=== PATIENT | female | born 1935 | race Caucasian/White ===

== ENCOUNTER 2016-05-11 16:52 | Emergency (ER) | payer OTHER, MEDICAID ==
[~2016-05-11] VITALS: Ht 152.4 cm; Wt 33.1 kg
[~2016-05-11 16:52] MED LIST: ALBUAER3 IN; ALPR0.5T7 PO; CALC200S7; CYCL10TA3 OR; DIPH2.5T73 PO; FLUT250M2 IN; LEVO25TA6 PO; METO25TA3 PO; MONT5CHW17 PO; NOR5T GT; OMEP20CA5 PO; POT20T PO; TRIA50TA2 PO
[2016-05-11] MEDS ORDERED: MORPHINE SULF INJ 2 MG/ML SYRINGE 1ML IV ONE (19:30)
[2016-05-11] MEDS ORDERED: ONDANSETRON HCL 4 MG/2 ML VIAL IV ONE (19:30)
[2016-05-11 21:20] VITALS: BP 130/62
== END 2016-05-11 23:18 | disposition home or self-care (01) ==
LOC: EDBD 16:52 → ER 16:54
DX: S42.221A 2-part displaced fracture of surgical neck of right humerus, initial encounter for closed fracture (principal); S51.011A Laceration without foreign body of right elbow, initial encounter; G89.29 Other chronic pain; J44.9 Chronic obstructive pulmonary disease, unspecified; M19.90 Unspecified osteoarthritis, unspecified site; Z85.118 Personal history of other malignant neoplasm of bronchus and lung; F17.210 Nicotine dependence, cigarettes, uncomplicated; Z88.2 Allergy status to sulfonamides; Z88.1 Allergy status to other antibiotic agents; Z88.8 Allergy status to other drugs, medicaments and biological substances; Z79.899 Other long term (current) drug therapy; W19.XXXA Unspecified fall, initial encounter; Y93.89 Activity, other specified; Y99.8 Other external cause status; Y92.89 Other specified places as the place of occurrence of the external cause
CPT/HCPCS: 29105; 73030; 96374; 96375; 99284; J2270; J2405

== ENCOUNTER 2018-03-03 17:23 | Inpatient (IN) | payer OTHER, MEDICAID ==
[~2018-03-03] VITALS: Ht 157.5 cm; Wt 37.7 kg
[~2018-03-03 17:23] MED LIST changes: +ALBU0.5N2; +ALPR0.5T; +DIPH2.5T73; +FLUT0.0531; +FLUT250M2; +HYDR-4683 GT; +LEVO25TA45; -METO25TA3 PO; +METO25TA4; +METO25TA4 PO; +MONT5CHW17; +NOR10T; -NOR5T GT; -OMEP20CA5 PO; +OMEP20CA74 PO; +TRIA50TA2
[2018-03-03 18:20] LABS: Basophils # (auto) 0.1 uL; Basophils % (auto) 0.2 % (0.0-2.0); Eosinophils # (auto) 0 uL; Hematocrit 49.5 % (36.0-46.0); Hemoglobin 16.7 g/dL (12.2-16.2); Lymphocytes # (auto) 1.2 uL; Mean Corpuscular Hemoglobin 33.8 pg (28.0-32.0); Mean Corpuscular Hgb Conc. 33.7 g/dL (32.0-36.0); Mean Corpuscular Volume 100.3 fL (80.0-100.0); Monocytes # (auto) 1.2 uL; Monocytes % (auto) 4.9 % (0.0-12.0); Neutrophils # (auto) 22.1 uL; Neutrophils % (auto) 89.9 % (37.0-80.0); Platelet Count (auto) 305 10^3/uL (140-450); Red Blood Cells 4.93 10^6/uL (4.0-5.20); Red Cell Distribution Width 14.2 % (11.8-14.3); White Blood Cell 24.5 10^3/uL (4.4-10.8)
[2018-03-03] MEDS ORDERED: methylPREDNISolone SOD SUCC 125 MG/2 ML VL IV ONE (18:30)
[2018-03-03 18:32] LABS: Albumin 2.9 g/dL (3.4-5.0); Calcium 8.6 mg/dL (8.5-10.1); Potassium 3.4 mmol/L (3.5-5.1)
[2018-03-03 18:38] LABS: BUN/Creatinine Ratio 17.6; Bilirubin, Total 1.1 mg/dL (0.2-1.0); Total Protein 7.3 g/dL (6.4-8.2)
[2018-03-03 19:30] LABS: Lactic Acid w/Reflex 2.9 mmol/L (0.4-2.0)
[2018-03-03] MEDS ORDERED: LEVOFLOXACIN 500MG 100 ML IV ONE (19:30)
[2018-03-03 19:36] LABS: Urine Bacteria FEW /hpf (None Seen); Urine Blood Negative /uL (Negative); Urine Hyaline Cast FEW /lpf (0 - 2); Urine Mucus FEW (None Seen); Urine Specific Gravity 1.018 (1.001-1.035); Urine WBC 2 /hpf (0 - 5)
[2018-03-03] MEDS ORDERED: cefTRIAXone 1GM/50ML D5W 50 ML IV ONE (19:45)
[2018-03-03] MEDS ORDERED: ONDANSETRON HCL 4 MG/2 ML VIAL IV ONE (21:00)
[2018-03-03] MEDS ORDERED: MORPHINE SULFATE 4 MG/ML SYR/VIAL IV ONE (21:00)
[2018-03-03] MEDS ORDERED: ONDANSETRON HCL 4 MG/2 ML VIAL IV PRN (21:45)
[2018-03-03] MEDS ORDERED: ACETAMINOPHEN 500 MG TAB PO PRN (21:45)
[2018-03-03] MEDS ORDERED: IOHEXOL 350 MG/ML 100ML IJ ONE (21:48)
[2018-03-03] MEDS: AZITHROMYCIN 500MG/ 250ML 250 ML IV SCH (22:03)
[2018-03-03] MEDS: POTASSIUM CHL 20 Meq TABLET PO SCH (22:03)
[2018-03-03 22:30] VITALS: BP 120/80
[2018-03-03] MEDS ORDERED: ENOXAPARIN SOD 40 MG/0.4 ML SYRINGE SC ONE (22:30)
[2018-03-03 23:18] VITALS: BP 127/74
[2018-03-04] MEDS: IPRATROPIUM BROM 0.5 MG/2.5ML INH SOL NEB SCH ×4 (00:11→19:43)
[2018-03-04] MEDS: ALBUTEROL SULF 2.5 MG/0.5ML(0.5%) NEB SOLN NEB SCH ×4 (00:11→19:43)
[2018-03-04] MEDS ORDERED: HYDR-4072 PO (00:51)
[2018-03-04] MEDS ORDERED: HYDR-4683 PO (00:51)
[2018-03-04] MEDS: HYDROcodone-ACET 5/325MG TAB PO PRN ×4 (01:30→17:16)
[2018-03-04 01:41] VITALS: BP 120/80
[2018-03-04] MEDS ORDERED: PRE5T GT (02:48)
[2018-03-04] MEDS ORDERED: UMEC1AER IN (02:48)
[2018-03-04] MEDS ORDERED: ALPR0.254 PO (02:48)
[2018-03-04] MEDS ORDERED: MONT10TA34 OR (02:48)
[2018-03-04] MEDS ORDERED: LEVO75TA50 PO (02:48)
[2018-03-04 05:34] VITALS: BP 98/60
[2018-03-04 06:19] LABS: Basophils # (auto) 0 uL; Basophils % (auto) 0.1 % (0.0-2.0); Eosinophils # (auto) 0 uL; Eosinophils % (auto) 0.1 % (0.0-7.0); Hematocrit 41.9 % (36.0-46.0); Hemoglobin 13.9 g/dL (12.2-16.2); Lymphocytes % (auto) 4.7 % (10.0-50.0); Mean Corpuscular Hgb Conc. 33.2 g/dL (32.0-36.0); Mean Corpuscular Volume 99.6 fL (80.0-100.0); Monocytes # (auto) 0.3 uL; Monocytes % (auto) 1.3 % (0.0-12.0); Neutrophils # (auto) 19.1 uL; Neutrophils % (auto) 93.8 % (37.0-80.0); Platelet Count (auto) 261 10^3/uL (140-450); Red Blood Cells 4.21 10^6/uL (4.0-5.20); Red Cell Distribution Width 13.8 % (11.8-14.3); White Blood Cell 20.4 10^3/uL (4.4-10.8)
[2018-03-04 06:26] LABS: BUN/Creatinine Ratio 24.4; Calcium 8.1 mg/dL (8.5-10.1); Potassium 5.1 mmol/L (3.5-5.1)
[2018-03-04 08:42] VITALS: BP 95/50
[2018-03-04] MEDS ORDERED: DIPH2.5T73 PO (09:41)
[2018-03-04] MEDS ORDERED: LEV50T GT (09:41)
[2018-03-04] MEDS: cefTRIAXone 1GM/50ML D5W 50 ML IV SCH (09:44)
[2018-03-04] MEDS: ENOXAPARIN SOD 30 MG/0.3 ML SYRINGE SC SCH (09:45)
[2018-03-04] MEDS: POTASSIUM CHL 20 Meq TABLET PO SCH (09:45)
[2018-03-04] MEDS ORDERED: ENOXAPARIN SOD 100 MG/1 ML SYRINGE SC SCH (10:00)
[2018-03-04] MEDS: ANORO ELLIPTA PO SCH (10:00)
[2018-03-04 12:35] VITALS: BP 96/53
[2018-03-04 16:59] VITALS: BP 115/67
[2018-03-04] MEDS: ENSURE CLEAR Mixed Berry 8oz Carton PO SCH (18:00)
[2018-03-04] MEDS ORDERED: [UNRECOGNIZED DRUG - OTHER] PO PRN (20:45)
[2018-03-04] MEDS ORDERED: DIPHENOXYLATE W/ATROPINE 2.5 MG TAB PO PRN (20:45)
[2018-03-04] MEDS ORDERED: HYDROCODONE ACETAMINOPHEN PO PRN (20:45)
[2018-03-04 22:00] VITALS: BP 124/79
[2018-03-04] MEDS ORDERED: PATIENTS OWN MEDICATION (Omeprazole (Prilosec) 1 CAP) PO SCH (22:00)
[2018-03-04] MEDS: ALPRAZolam 0.5 MG TAB PO SCH (22:00)
[2018-03-04] MEDS: AZITHROMYCIN 500MG/ 250ML 250 ML IV SCH (22:00)
[2018-03-04] MEDS ORDERED: PATIENTS OWN MEDICATION (Alprazolam 1 TAB) PO SCH (22:00)
[2018-03-04] MEDS: HYDROcodone-ACET 10/325MG TAB PO PRN (22:15)
[2018-03-05] MEDS: ALBUTEROL SULF 2.5 MG/0.5ML(0.5%) NEB SOLN NEB SCH ×4 (01:25→19:05)
[2018-03-05] MEDS: IPRATROPIUM BROM 0.5 MG/2.5ML INH SOL NEB SCH ×4 (01:25→19:06)
[2018-03-05] MEDS: HYDROcodone-ACET 10/325MG TAB PO PRN ×3 (02:51→22:15)
[2018-03-05 05:48] VITALS: BP 111/69
[2018-03-05] MEDS: ALPRAZolam 0.5 MG TAB PO SCH ×3 (06:00→22:06)
[2018-03-05] MEDS: LEVOTHYROXINE SODIUM 50 MCG TAB GT SCH (06:38)
[2018-03-05] MEDS: ENSURE CLEAR Mixed Berry 8oz Carton PO SCH ×5 (06:38→22:05)
[2018-03-05 09:00] VITALS: BP 111/64
[2018-03-05] MEDS: cefTRIAXone 1GM/50ML D5W 50 ML IV SCH (09:41)
[2018-03-05] MEDS: MONTELUKAST SODIUM 10 MG TAB PO SCH (09:42)
[2018-03-05] MEDS: POTASSIUM CHL 20 Meq TABLET PO SCH (09:42)
[2018-03-05] MEDS: PANTOPRAZOLE 40 MG TAB PO SCH (09:42)
[2018-03-05] MEDS: METOPROLOL SUCCINATE XL 50 MG TAB PO SCH (09:44)
[2018-03-05] MEDS: ENOXAPARIN SOD 30 MG/0.3 ML SYRINGE SC SCH (09:45)
[2018-03-05] MEDS: ANORO ELLIPTA PO SCH (09:48)
[2018-03-05] MEDS ORDERED: UMECLIDINIUM VILANTEROL IN SCH (10:00)
[2018-03-05] MEDS ORDERED: METOPROLOL SUCCINATE PO SCH (10:00)
[2018-03-05] MEDS ORDERED: predniSONE 5 MG TAB GT SCH (10:00)
[2018-03-05 13:00] VITALS: BP 110/61
[2018-03-05 17:22] VITALS: BP 116/69
[2018-03-05 22:00] VITALS: BP 126/70
[2018-03-05] MEDS ORDERED: ENOXAPARIN SOD 40 MG/0.4 ML SYRINGE SC SCH (22:00)
[2018-03-05] MEDS: AZITHROMYCIN 500MG/ 250ML 250 ML IV SCH (22:05)
[2018-03-05] MEDS: ENOXAPARIN SOD 40 MG/0.4 ML SYRINGE SC SCH (22:06)
[2018-03-06] MEDS: IPRATROPIUM BROM 0.5 MG/2.5ML INH SOL NEB SCH ×4 (01:01→19:06)
[2018-03-06] MEDS: ALBUTEROL SULF 2.5 MG/0.5ML(0.5%) NEB SOLN NEB SCH ×4 (01:01→19:06)
[2018-03-06 04:58] VITALS: BP 122/78
[2018-03-06 05:54] LABS: Basophils # (auto) 0 uL; Eosinophils # (auto) 0 uL; Eosinophils % (auto) 0.1 % (0.0-7.0); Hemoglobin 12.9 g/dL (12.2-16.2); Lymphocytes # (auto) 1.6 uL; Lymphocytes % (auto) 13.4 % (10.0-50.0); Mean Corpuscular Hemoglobin 32.4 pg (28.0-32.0); Mean Corpuscular Hgb Conc. 32.3 g/dL (32.0-36.0); Mean Corpuscular Volume 100.5 fL (80.0-100.0); Monocytes # (auto) 0.6 uL; Monocytes % (auto) 4.6 % (0.0-12.0); Neutrophils # (auto) 9.9 uL; Neutrophils % (auto) 81.9 % (37.0-80.0); Nucleated Red Blood Cells % 0.1 %; Platelet Count (auto) 263 10^3/uL (140-450); Red Blood Cells 3.98 10^6/uL (4.0-5.20); Red Cell Distribution Width 13.8 % (11.8-14.3)
[2018-03-06] MEDS: LEVOTHYROXINE SODIUM 50 MCG TAB GT SCH (06:09)
[2018-03-06] MEDS: ALPRAZolam 0.5 MG TAB PO SCH ×3 (06:09→21:59)
[2018-03-06] MEDS: ENSURE CLEAR Mixed Berry 8oz Carton PO SCH ×4 (06:09→22:00)
[2018-03-06 09:00] VITALS: BP 125/73
[2018-03-06] MEDS: ANORO ELLIPTA PO SCH (09:08)
[2018-03-06] MEDS: cefTRIAXone 1GM/50ML D5W 50 ML IV SCH (09:08)
[2018-03-06] MEDS: METOPROLOL SUCCINATE XL 50 MG TAB PO SCH (09:09)
[2018-03-06] MEDS: PANTOPRAZOLE 40 MG TAB PO SCH (09:09)
[2018-03-06] MEDS: POTASSIUM CHL 20 Meq TABLET PO SCH (09:09)
[2018-03-06] MEDS: MONTELUKAST SODIUM 10 MG TAB PO SCH (09:09)
[2018-03-06] MEDS: ENOXAPARIN SOD 40 MG/0.4 ML SYRINGE SC SCH ×2 (09:10→21:59)
[2018-03-06] MEDS: HYDROcodone-ACET 10/325MG TAB PO PRN (12:05)
[2018-03-06 13:00] VITALS: BP 127/78
[2018-03-06] MEDS: SODIUM CHLORIDE 0.9% 1,000 ML IV SCH ×2 (14:31→19:45)
[2018-03-06 17:00] VITALS: BP 137/84
[2018-03-06 21:48] VITALS: BP 137/84
[2018-03-06] MEDS: AZITHROMYCIN 500MG/ 250ML 250 ML IV SCH (21:59)
[2018-03-06 22:00] VITALS: BP 118/57
[2018-03-07] VITALS (7 sets, daily range): BP systolic 125–145; BP diastolic 58–89
[2018-03-07] MEDS: IPRATROPIUM BROM 0.5 MG/2.5ML INH SOL NEB SCH ×3 (00:53→19:03)
[2018-03-07] MEDS: ALBUTEROL SULF 2.5 MG/0.5ML(0.5%) NEB SOLN NEB SCH ×3 (00:53→19:03)
[2018-03-07] MEDS: SODIUM CHLORIDE 0.9% 1,000 ML IV SCH ×4 (03:45→21:30)
[2018-03-07 05:45] LABS: Basophils # (auto) 0 uL; Basophils % (auto) 0.4 % (0.0-2.0); Eosinophils # (auto) 0 uL; Eosinophils % (auto) 0.6 % (0.0-7.0); Hematocrit 43.3 % (36.0-46.0); Hemoglobin 14.4 g/dL (12.2-16.2); Lymphocytes # (auto) 1.2 uL; Lymphocytes % (auto) 16.4 % (10.0-50.0); Mean Corpuscular Hemoglobin 33.4 pg (28.0-32.0); Mean Corpuscular Hgb Conc. 33.2 g/dL (32.0-36.0); Mean Corpuscular Volume 100.8 fL (80.0-100.0); Monocytes # (auto) 0.6 uL; Monocytes % (auto) 8.3 % (0.0-12.0); Neutrophils # (auto) 5.6 uL; Neutrophils % (auto) 74.3 % (37.0-80.0); Nucleated Red Blood Cells % 0.1 %; Platelet Count (auto) 255 10^3/uL (140-450); Red Blood Cells 4.29 10^6/uL (4.0-5.20); Red Cell Distribution Width 14.1 % (11.8-14.3); White Blood Cell 7.6 10^3/uL (4.4-10.8)
[2018-03-07] MEDS: ALPRAZolam 0.5 MG TAB PO SCH ×3 (05:48→22:04)
[2018-03-07] MEDS: ENSURE CLEAR Mixed Berry 8oz Carton PO SCH ×4 (06:00→22:04)
[2018-03-07] MEDS: LEVOTHYROXINE SODIUM 50 MCG TAB GT SCH (06:41)
[2018-03-07] MEDS: HYDROcodone-ACET 10/325MG TAB PO PRN ×2 (08:50→17:27)
[2018-03-07] MEDS: cefTRIAXone 1GM/50ML D5W 50 ML IV SCH (08:50)
[2018-03-07] MEDS: ANORO ELLIPTA PO SCH (10:00)
[2018-03-07] MEDS: METOPROLOL SUCCINATE XL 50 MG TAB PO SCH (11:03)
[2018-03-07] MEDS: POTASSIUM CHL 20 Meq TABLET PO SCH (11:03)
[2018-03-07] MEDS: MONTELUKAST SODIUM 10 MG TAB PO SCH (11:04)
[2018-03-07] MEDS: PANTOPRAZOLE 40 MG TAB PO SCH (11:04)
[2018-03-07] MEDS: ENOXAPARIN SOD 40 MG/0.4 ML SYRINGE SC SCH (11:05)
[2018-03-07] MEDS ORDERED: APIXABAN 2.5 MG TAB PO SCH (11:34)
[2018-03-07] MEDS: APIXABAN 2.5 MG TAB PO SCH (22:03)
[2018-03-07] MEDS: AZITHROMYCIN 500MG/ 250ML 250 ML IV SCH (22:04)
[2018-03-08] MEDS: ALBUTEROL SULF 2.5 MG/0.5ML(0.5%) NEB SOLN NEB SCH ×4 (00:06→19:14)
[2018-03-08] MEDS: IPRATROPIUM BROM 0.5 MG/2.5ML INH SOL NEB SCH ×4 (00:06→19:14)
[2018-03-08 05:00] VITALS: BP 128/68
[2018-03-08 05:30] LABS: Basophils # (auto) 0 uL; Eosinophils # (auto) 0.1 uL; Eosinophils % (auto) 1.3 % (0.0-7.0); Hemoglobin 13.9 g/dL (12.2-16.2)
[2018-03-08] MEDS: ENSURE CLEAR Mixed Berry 8oz Carton PO SCH ×4 (05:30→22:11)
[2018-03-08] MEDS: ALPRAZolam 0.5 MG TAB PO SCH ×3 (05:30→22:11)
[2018-03-08 05:31] LABS: Basophils % (auto) 0.2 % (0.0-2.0); Hematocrit 41.8 % (36.0-46.0); Lymphocytes # (auto) 1.9 uL; Lymphocytes % (auto) 23.2 % (10.0-50.0); Mean Corpuscular Hemoglobin 34.2 pg (28.0-32.0); Mean Corpuscular Hgb Conc. 33.3 g/dL (32.0-36.0); Mean Corpuscular Volume 102.8 fL (80.0-100.0); Monocytes % (auto) 11.8 % (0.0-12.0); Neutrophils # (auto) 5.2 uL; Neutrophils % (auto) 63.5 % (37.0-80.0); Nucleated Red Blood Cells % 0.1 %; Platelet Count (auto) 237 10^3/uL (140-450); Red Blood Cells 4.06 10^6/uL (4.0-5.20); Red Cell Distribution Width 13.9 % (11.8-14.3); White Blood Cell 8.3 10^3/uL (4.4-10.8)
[2018-03-08] MEDS: LEVOTHYROXINE SODIUM 50 MCG TAB GT SCH (06:37)
[2018-03-08 08:00] VITALS: BP 132/88
[2018-03-08 09:00] VITALS: BP 152/88
[2018-03-08] MEDS: cefTRIAXone 1GM/50ML D5W 50 ML IV SCH (09:12)
[2018-03-08] MEDS: HYDROcodone-ACET 10/325MG TAB PO PRN ×2 (09:13→17:42)
[2018-03-08] MEDS: ANORO ELLIPTA PO SCH (10:00)
[2018-03-08] MEDS: APIXABAN 2.5 MG TAB PO SCH ×2 (11:27→22:10)
[2018-03-08] MEDS: PANTOPRAZOLE 40 MG TAB PO SCH (11:27)
[2018-03-08] MEDS: MONTELUKAST SODIUM 10 MG TAB PO SCH (11:27)
[2018-03-08] MEDS: POTASSIUM CHL 20 Meq TABLET PO SCH (11:28)
[2018-03-08] MEDS: METOPROLOL SUCCINATE XL 50 MG TAB PO SCH (11:28)
[2018-03-08] MEDS: SODIUM CHLORIDE 0.9% 1,000 ML IV SCH ×2 (11:29→19:45)
[2018-03-08 13:00] VITALS: BP 121/72
[2018-03-08] MEDS ORDERED: LEVOFLOXACIN 500 MG TAB PO ONE (14:00)
[2018-03-08 17:00] VITALS: BP 127/75
[2018-03-08 21:28] VITALS: BP 131/74
[2018-03-09] MEDS: ALBUTEROL SULF 2.5 MG/0.5ML(0.5%) NEB SOLN NEB SCH ×4 (00:46→19:09)
[2018-03-09] MEDS: IPRATROPIUM BROM 0.5 MG/2.5ML INH SOL NEB SCH ×4 (00:46→19:09)
[2018-03-09] MEDS: SODIUM CHLORIDE 0.9% 1,000 ML IV SCH ×3 (01:25→22:31)
[2018-03-09] MEDS: ENSURE CLEAR Mixed Berry 8oz Carton PO SCH ×4 (05:31→22:29)
[2018-03-09] MEDS: ALPRAZolam 0.5 MG TAB PO SCH ×3 (05:31→22:29)
[2018-03-09 05:39] VITALS: BP 129/68
[2018-03-09] MEDS: LEVOTHYROXINE SODIUM 50 MCG TAB GT SCH (06:31)
[2018-03-09 06:51] LABS: BUN/Creatinine Ratio 5.4; Calcium 7.2 mg/dL (8.5-10.1); Potassium 4.1 mmol/L (3.5-5.1)
[2018-03-09 06:54] LABS: Bilirubin, Total 0.5 mg/dL (0.2-1.0); Total Protein 5.6 g/dL (6.4-8.2)
[2018-03-09 08:54] VITALS: BP 158/99
[2018-03-09] MEDS: ANORO ELLIPTA PO SCH (10:00)
[2018-03-09] MEDS ORDERED: LEVOFLOXACIN 250 MG TAB PO SCH (10:00)
[2018-03-09] MEDS: POTASSIUM CHL 20 Meq TABLET PO SCH (10:05)
[2018-03-09] MEDS: MONTELUKAST SODIUM 10 MG TAB PO SCH (10:05)
[2018-03-09] MEDS: APIXABAN 2.5 MG TAB PO SCH ×2 (10:05→22:29)
[2018-03-09] MEDS: AZITHROMYCIN 250 MG TAB PO SCH (10:06)
[2018-03-09] MEDS: METOPROLOL SUCCINATE XL 50 MG TAB PO SCH (10:07)
[2018-03-09] MEDS: PANTOPRAZOLE 40 MG TAB PO SCH (10:07)
[2018-03-09 12:23] VITALS: BP 113/75
[2018-03-09 16:46] VITALS: BP 110/66
[2018-03-09 20:20] VITALS: BP 137/84
[2018-03-09 22:00] VITALS: BP 123/80
[2018-03-09] MEDS: HYDROcodone-ACET 10/325MG TAB PO PRN (22:30)
[2018-03-10] MEDS: IPRATROPIUM BROM 0.5 MG/2.5ML INH SOL NEB SCH ×5 (00:46→23:04)
[2018-03-10] MEDS: ALBUTEROL SULF 2.5 MG/0.5ML(0.5%) NEB SOLN NEB SCH ×5 (00:46→23:04)
[2018-03-10] MEDS: SODIUM CHLORIDE 0.9% 1,000 ML IV SCH ×3 (03:45→22:34)
[2018-03-10 05:00] VITALS: BP 115/61
[2018-03-10] MEDS: ALPRAZolam 0.5 MG TAB PO SCH ×3 (06:00→21:48)
[2018-03-10] MEDS: ENSURE CLEAR Mixed Berry 8oz Carton PO SCH ×4 (06:04→22:00)
[2018-03-10] MEDS: LEVOTHYROXINE SODIUM 50 MCG TAB GT SCH (06:46)
[2018-03-10 08:00] VITALS: BP 132/64
[2018-03-10 08:58] VITALS: BP 132/64
[2018-03-10] MEDS: ANORO ELLIPTA PO SCH (09:19)
[2018-03-10] MEDS: MONTELUKAST SODIUM 10 MG TAB PO SCH (09:21)
[2018-03-10] MEDS: POTASSIUM CHL 20 Meq TABLET PO SCH (09:21)
[2018-03-10] MEDS: APIXABAN 2.5 MG TAB PO SCH ×2 (09:21→21:48)
[2018-03-10] MEDS: AZITHROMYCIN 250 MG TAB PO SCH (09:21)
[2018-03-10] MEDS: PANTOPRAZOLE 40 MG TAB PO SCH (09:21)
[2018-03-10] MEDS: METOPROLOL SUCCINATE XL 50 MG TAB PO SCH (09:22)
[2018-03-10 14:17] VITALS: BP 144/68
[2018-03-10] MEDS ORDERED: ALBUAER3 IN (16:10)
[2018-03-10] MEDS ORDERED: ALPR0.254 PO (16:11)
[2018-03-10] MEDS ORDERED: DIPH2.5T73 PO (16:13)
[2018-03-10] MEDS ORDERED: LEVO50TA7 PO (16:24)
[2018-03-10] MEDS ORDERED: METO25TA62 PO (16:25)
[2018-03-10] MEDS ORDERED: MONT10TA34 PO (16:26)
[2018-03-10] MEDS ORDERED: OMEP20TA PO (16:27)
[2018-03-10 17:34] VITALS: BP 152/79
[2018-03-10 21:46] VITALS: BP 138/76
[2018-03-10] MEDS: HYDROcodone-ACET 10/325MG TAB PO PRN (21:49)
[2018-03-11] MEDS: SODIUM CHLORIDE 0.9% 1,000 ML IV SCH ×3 (03:45→20:17)
[2018-03-11 04:50] VITALS: BP 96/52
[2018-03-11] MEDS: ENSURE CLEAR Mixed Berry 8oz Carton PO SCH ×4 (06:00→21:54)
[2018-03-11] MEDS: ALPRAZolam 0.5 MG TAB PO SCH ×3 (06:00→21:52)
[2018-03-11] MEDS: ALBUTEROL SULF 2.5 MG/0.5ML(0.5%) NEB SOLN NEB SCH ×3 (06:35→18:44)
[2018-03-11] MEDS: IPRATROPIUM BROM 0.5 MG/2.5ML INH SOL NEB SCH ×3 (06:36→18:44)
[2018-03-11] MEDS: LEVOTHYROXINE SODIUM 50 MCG TAB GT SCH (06:48)
[2018-03-11 08:00] VITALS: BP 111/63
[2018-03-11 09:00] VITALS: BP 111/63
[2018-03-11] MEDS: ANORO ELLIPTA PO SCH (09:31)
[2018-03-11] MEDS: APIXABAN 2.5 MG TAB PO SCH ×2 (09:31→21:52)
[2018-03-11] MEDS: POTASSIUM CHL 20 Meq TABLET PO SCH (09:32)
[2018-03-11] MEDS: PANTOPRAZOLE 40 MG TAB PO SCH (09:32)
[2018-03-11] MEDS: AZITHROMYCIN 250 MG TAB PO SCH (09:32)
[2018-03-11] MEDS: MONTELUKAST SODIUM 10 MG TAB PO SCH (09:32)
[2018-03-11] MEDS: METOPROLOL SUCCINATE XL 50 MG TAB PO SCH (09:33)
[2018-03-11 13:00] VITALS: BP 117/77
[2018-03-11 17:00] VITALS: BP 122/74
[2018-03-11] MEDS: HYDROcodone-ACET 10/325MG TAB PO PRN (21:52)
[2018-03-11 22:00] VITALS: BP 117/63
[2018-03-12] MEDS: ALBUTEROL SULF 2.5 MG/0.5ML(0.5%) NEB SOLN NEB SCH ×3 (00:14→11:55)
[2018-03-12] MEDS: IPRATROPIUM BROM 0.5 MG/2.5ML INH SOL NEB SCH ×3 (00:14→11:55)
[2018-03-12 05:00] VITALS: BP 122/56
[2018-03-12] MEDS: ALPRAZolam 0.5 MG TAB PO SCH ×2 (06:00→14:00)
[2018-03-12] MEDS: SODIUM CHLORIDE 0.9% 1,000 ML IV SCH ×2 (06:23→11:46)
[2018-03-12] MEDS: ENSURE CLEAR Mixed Berry 8oz Carton PO SCH ×3 (06:23→17:49)
[2018-03-12] MEDS: LEVOTHYROXINE SODIUM 50 MCG TAB GT SCH (06:23)
[2018-03-12 08:00] VITALS: BP 122/69
[2018-03-12 09:00] VITALS: BP 122/69
[2018-03-12] MEDS: ANORO ELLIPTA PO SCH (10:00)
[2018-03-12] MEDS: PANTOPRAZOLE 40 MG TAB PO SCH (10:03)
[2018-03-12] MEDS: POTASSIUM CHL 20 Meq TABLET PO SCH (10:03)
[2018-03-12] MEDS: APIXABAN 2.5 MG TAB PO SCH (10:03)
[2018-03-12] MEDS: AZITHROMYCIN 250 MG TAB PO SCH (10:04)
[2018-03-12] MEDS: MONTELUKAST SODIUM 10 MG TAB PO SCH (10:04)
[2018-03-12] MEDS: METOPROLOL SUCCINATE XL 50 MG TAB PO SCH (10:04)
[2018-03-12] MEDS: HYDROcodone-ACET 10/325MG TAB PO PRN (10:05)
[2018-03-12 13:00] VITALS: BP 124/74
[2018-03-12 17:00] VITALS: BP 122/61
[2018-03-12 18:07] VITALS: BP 122/61
== END 2018-03-12 18:07 | disposition home or self-care (01) | DRG 871 ==
LOC: ER 17:30 → OVERFLOW 21:42 → WEST WING 22:24
PROVIDERS: ADMIT Nurse Practitioner Family; ATTEND Internal Medicine Pulmonary Disease
DX: A41.9 Sepsis, unspecified organism (principal); J18.1 Lobar pneumonia, unspecified organism; I26.99 Other pulmonary embolism without acute cor pulmonale; J96.20 Acute and chronic respiratory failure, unspecified whether with hypoxia or hypercapnia; E44.0 Moderate protein-calorie malnutrition; J44.0 Chronic obstructive pulmonary disease with (acute) lower respiratory infection; J44.1 Chronic obstructive pulmonary disease with (acute) exacerbation; M48.56XA Collapsed vertebra, not elsewhere classified, lumbar region, initial encounter for fracture; Z68.1 Body mass index [BMI] 19.9 or less, adult; E03.9 Hypothyroidism, unspecified; E87.6 Hypokalemia; F17.210 Nicotine dependence, cigarettes, uncomplicated; I10 Essential (primary) hypertension; F41.9 Anxiety disorder, unspecified; I70.0 Atherosclerosis of aorta; M19.90 Unspecified osteoarthritis, unspecified site; R73.9 Hyperglycemia, unspecified; K25.9 Gastric ulcer, unspecified as acute or chronic, without hemorrhage or perforation; M81.0 Age-related osteoporosis without current pathological fracture; Z82.49 Family history of ischemic heart disease and other diseases of the circulatory system; Z85.118 Personal history of other malignant neoplasm of bronchus and lung; Z90.2 Acquired absence of lung [part of]; Z79.51 Long term (current) use of inhaled steroids; Z88.1 Allergy status to other antibiotic agents; Z88.2 Allergy status to sulfonamides
CPT/HCPCS: 36415; 71045; 71046; 71260; 76705; 80048; 80053; 81001; 83605; 83880; 84484; 85025; 87040; 87804; 93005; 94640; 94761; 96365; 96372; 96375; 97116; 97530; G0378; J0696; J2405

== ENCOUNTER → 2018-06-18 | Outpatient (CLI) | payer OTHER, MEDICAID ==
[~2018-06-18] MED LIST changes: +ALPR0.254 PO; -ALPR0.5T7 PO; -CALC200S7; -CYCL10TA3 OR; -FLUT250M2 IN; -HYDR-4683 GT; -LEVO25TA6 PO; +LEVO50TA7 PO; -METO25TA4 PO; +METO25TA62 PO; +MONT10TA34 PO; -MONT5CHW17 PO; -OMEP20CA74 PO; +OMEP20TA PO; -POT20T PO; -TRIA50TA2 PO
[2018-06-18 10:41] LABS: Basophils # (auto) 0.1 uL; Basophils % (auto) 0.9 % (0.0-2.0); Eosinophils # (auto) 0 uL; Eosinophils % (auto) 0.8 % (0.0-7.0); Hematocrit 41.2 % (36.0-46.0); Hemoglobin 13.3 g/dL (12.2-16.2); Lymphocytes % (auto) 31.4 % (10.0-50.0); Mean Corpuscular Hemoglobin 32.3 pg (28.0-32.0); Mean Corpuscular Hgb Conc. 32.3 g/dL (32.0-36.0); Mean Corpuscular Volume 100.1 fL (80.0-100.0); Monocytes # (auto) 0.5 uL; Monocytes % (auto) 8.7 % (0.0-12.0); Neutrophils # (auto) 3.7 uL; Neutrophils % (auto) 58.2 % (37.0-80.0); Nucleated Red Blood Cells % 0.1 %; Platelet Count (auto) 277 10^3/uL (140-450); Red Blood Cells 4.12 10^6/uL (4.0-5.20); Red Cell Distribution Width 13.4 % (11.8-14.3); White Blood Cell 6.3 10^3/uL (4.4-10.8)
[2018-06-18 10:45] LABS: Potassium 4.1 mmol/L (3.5-5.1)
[2018-06-18 11:13] LABS: Albumin 2.9 g/dL (3.4-5.0); BUN/Creatinine Ratio 17.3; Bilirubin, Total 0.6 mg/dL (0.2-1.0); Calcium 8.6 mg/dL (8.5-10.1)
== END | disposition home or self-care (01) ==
LOC: LAB 09:51
PROVIDERS: ATTEND Physician Assistant
DX: M81.0 Age-related osteoporosis without current pathological fracture (principal); K58.9 Irritable bowel syndrome, unspecified; E03.9 Hypothyroidism, unspecified; J44.9 Chronic obstructive pulmonary disease, unspecified; R64 Cachexia
CPT/HCPCS: 36415; 80053; 80061; 84443; 85025

== ENCOUNTER → 2019-06-11 | Outpatient (CLI) | payer OTHER, MEDICAID ==
[~2019-06-11] MED LIST changes: +METO25TA36; -METO25TA4; -METO25TA62 PO; +METO25TA93 PO
[2019-06-11 12:14] LABS: Basophils # (auto) 0 uL; Basophils % (auto) 0.7 % (0.0-2.0); Eosinophils # (auto) 0.1 uL; Lymphocytes # (auto) 1.7 uL; Mean Corpuscular Volume 101.7 fL (80.0-100.0); Monocytes # (auto) 0.4 uL; Red Blood Cells 4.18 10^6/uL (4.0-5.20); White Blood Cell 5.4 10^3/uL (4.4-10.8)
[2019-06-11 12:16] LABS: Eosinophils % (auto) 1.7 % (0.0-7.0); Hematocrit 42.6 % (36.0-46.0); Hemoglobin 14.2 g/dL (12.2-16.2); Lymphocytes % (auto) 31.2 % (10.0-50.0); Mean Corpuscular Hgb Conc. 33.4 g/dL (32.0-36.0); Neutrophils # (auto) 3.2 uL; Neutrophils % (auto) 59.4 % (37.0-80.0); Nucleated Red Blood Cells % 0.1 %; Platelet Count (auto) 201 10^3/uL (140-450); Red Cell Distribution Width 13.3 % (11.8-14.3)
[2019-06-11 12:29] LABS: Albumin 3.6 g/dL (3.4-5.0); CRP High Sensitivity 0.09 mg/dL (< 0.3); Calcium 8.8 mg/dL (8.5-10.1); Potassium 3.8 mmol/L (3.5-5.1)
[2019-06-11 12:32] LABS: BUN/Creatinine Ratio 15.4; Bilirubin, Total 0.5 mg/dL (0.2-1.0); Total Protein 7.3 g/dL (6.4-8.2)
== END | disposition home or self-care (01) ==
LOC: LAB 11:46
PROVIDERS: ATTEND Internal Medicine Rheumatology
DX: M80.00XA Age-related osteoporosis with current pathological fracture, unspecified site, initial encounter for fracture (principal)
CPT/HCPCS: 36415; 80053; 82306; 84443; 85025; 85652; 86141

== ENCOUNTER → 2019-09-12 | Emergency (ER) | payer OTHER, MEDICAID ==
[~2019-09-12] VITALS: Ht 152.4 cm; Wt 33.1 kg
[~2019-09-12] MED LIST changes: +ACETAMINOPHEN 325 MG TAB PO ONE; +MILK OF MAGNESIA 30ML SUSP PO ONE; +ONDANSETRON HCL 4 MG/2 ML VIAL IV ONE; +POTASSIUM EFFERVESENT TAB 25 MEQ PO ONE; +SODIUM CHLORIDE 0.9% 1,000 ML IVB ONE
[2019-09-12 16:21] LABS: Basophils # (auto) 0 10 ^3/uL (0-0.2); Basophils % (auto) 0.4 % (0.0-2.0); Eosinophils # (auto) 0.1 10 ^3/uL (0-0.8); Eosinophils % (auto) 1.1 % (0.0-7.0); Hematocrit 43.1 % (36.0-46.0); Hemoglobin 14.6 g/dL (12.2-16.2); Lymphocytes # (auto) 0.6 10 ^3/uL (0.4-5.4); Lymphocytes % (auto) 5.7 % (10.0-50.0); Mean Corpuscular Hemoglobin 33.8 pg (28.0-32.0); Mean Corpuscular Hgb Conc. 33.8 g/dL (32.0-36.0); Monocytes # (auto) 0.8 10 ^3/uL (0-1.3); Monocytes % (auto) 7.7 % (0.0-12.0); Neutrophils % (auto) 85.1 % (37.0-80.0); Platelet Count (auto) 168 10^3/uL (140-450); Red Cell Distribution Width 13.3 % (11.8-14.3); White Blood Cell 10.6 10^3/uL (4.4-10.8)
[2019-09-12 16:31] LABS: Albumin 3.4 g/dL (3.4-5.0); Calcium 8.5 mg/dL (8.5-10.1); Magnesium 1.9 mg/dL (1.6-2.6); Potassium 3.4 mmol/L (3.5-5.1)
[2019-09-12 16:34] LABS: Total Protein 7.6 g/dL (6.4-8.2)
[2019-09-12 16:36] LABS: INR 1.04 (0.9-1.15); Partial Thromboplastin Time 29.7 sec (23.64-32.05)
[2019-09-12 16:46] LABS: Urine Bacteria NONE SEEN /hpf (None Seen); Urine Blood Negative /uL (Negative); Urine Specific Gravity 1.016 (1.001-1.035); Urine WBC 6 /hpf (0 - 5)
[2019-09-12 19:32] VITALS: BP 152/77
== END | disposition home or self-care (01) ==
LOC: ER 14:26
DX: K59.00 Constipation, unspecified (principal); R30.0 Dysuria; J44.9 Chronic obstructive pulmonary disease, unspecified; F41.9 Anxiety disorder, unspecified; F17.210 Nicotine dependence, cigarettes, uncomplicated; Z79.899 Other long term (current) drug therapy; Z88.1 Allergy status to other antibiotic agents; Z88.2 Allergy status to sulfonamides
CPT/HCPCS: 36415; 71045; 74176; 80053; 81001; 83735; 85025; 85610; 85730; 87086

== ENCOUNTER 2020-01-20 15:07 | Inpatient (IN) | payer OTHER, MEDICAID ==
[~2020-01-20] VITALS: Ht 152.4 cm; Wt 35.1 kg
[~2020-01-20 15:07] MED LIST changes: -ACETAMINOPHEN 325 MG TAB PO ONE; -MILK OF MAGNESIA 30ML SUSP PO ONE; -ONDANSETRON HCL 4 MG/2 ML VIAL IV ONE; -POTASSIUM EFFERVESENT TAB 25 MEQ PO ONE; -SODIUM CHLORIDE 0.9% 1,000 ML IVB ONE
[2020-01-20] MEDS ORDERED: PANTOPRAZOLE 40 MG/10 ML VIAL INJ IV STA (15:38)
[2020-01-20] MEDS ORDERED: MORPHINE SULFATE 4 MG/ML SYR/VIAL IV ONE (15:45)
[2020-01-20] MEDS ORDERED: ONDANSETRON HCL 4 MG/2 ML VIAL IV ONE (15:45)
[2020-01-20 16:02] LABS: Eosinophils # (auto) 0.2 10 ^3/uL (0-0.8); Eosinophils % (auto) 2.1 % (0.0-7.0); Hematocrit 46.2 % (36.0-46.0); Nucleated Red Blood Cells % 0.1 %
[2020-01-20 16:04] LABS: Basophils # (auto) 0 10 ^3/uL (0-0.2); Basophils % (auto) 0.4 % (0.0-2.0); Hemoglobin 15.3 g/dL (12.2-16.2); Lymphocytes # (auto) 2.6 10 ^3/uL (0.4-5.4); Lymphocytes % (auto) 30.9 % (10.0-50.0); Mean Corpuscular Hemoglobin 33.6 pg (28.0-32.0); Mean Corpuscular Volume 101.7 fL (80.0-100.0); Monocytes # (auto) 0.7 10 ^3/uL (0-1.3); Monocytes % (auto) 7.8 % (0.0-12.0); Neutrophils # (auto) 4.9 10 ^3/uL (1.6-8.6); Neutrophils % (auto) 58.8 % (37.0-80.0); Platelet Count (auto) 240 10^3/uL (140-450); Red Blood Cells 4.54 10^6/uL (4.0-5.20); Red Cell Distribution Width 13.3 % (11.8-14.3); White Blood Cell 8.3 10^3/uL (4.4-10.8)
[2020-01-20 16:22] LABS: Alanine Aminotransferase 16 U/L (13-56); Albumin 3.8 g/dL (3.4-5.0); Anion Gap 4 (5-15); Blood Urea Nitrogen 10 mg/dL (7-18); Calcium 7.8 mg/dL (8.5-10.1); Carbon Dioxide 30 mmol/L (21-32); Chloride 104 mmol/L (98-107); Glucose 106 mg/dL (74-106); Lipase 93 U/L (73-393); Potassium 3.8 mmol/L (3.5-5.1); Sodium 138 mmol/L (136-145)
[2020-01-20 16:27] LABS: Alkaline Phosphatase 74 U/L (45-117); Aspartate Aminotransferase 26 U/L (15-37); BUN/Creatinine Ratio 14.5; Bilirubin, Total 0.5 mg/dL (0.2-1.0); GFR African American 104 mL/min; GFR Non-African American 86 mL/min; Total Protein 7.7 g/dL (6.4-8.2)
[2020-01-20 20:12] LABS: Urine Bacteria NONE SEEN /hpf (None Seen); Urine Blood Negative /uL (Negative); Urine WBC 3 /hpf (0 - 5)
[2020-01-20] MEDS ORDERED: MORPHINE SULF INJ 2 MG/ML SYRINGE 1ML IV PRN ×2 (21:30→22:15)
[2020-01-20] MEDS ORDERED: ONDANSETRON HCL 4 MG/2 ML VIAL IV PRN ×2 (21:30→22:15)
[2020-01-20] MEDS ORDERED: HYDROcodone-ACET 5/325MG TAB PO PRN (22:15)
[2020-01-20] MEDS ORDERED: ACETAMINOPHEN 325 MG TAB PO PRN (22:15)
[2020-01-20] MEDS ORDERED: NITROGLYCERIN 0.4 MG SL TAB SL PRN (22:15)
[2020-01-20] MEDS ORDERED: DIPHENOXYLATE W/ATROPINE 2.5 MG TAB PO PRN (22:30)
[2020-01-20] MEDS ORDERED: ALBUTEROL SULF HFA 90MCG INH 200DOSE IN PRN (22:30)
[2020-01-20] MEDS ORDERED: ALBUTEROL SULF 2.5 MG/0.5ML(0.5%) NEB SOLN NEB PRN (23:00)
[2020-01-20 23:48] VITALS: BP 145/75
[2020-01-21] VITALS (8 sets, daily range): BP systolic 126–158; BP diastolic 54–95
[2020-01-21] MEDS: SODIUM CHLORIDE 0.9% 1,000 ML IV SCH ×2 (00:36→14:55)
[2020-01-21] MEDS: MORPHINE SULFATE 4 MG/ML SYR/VIAL IV PRN ×4 (01:11→20:07)
[2020-01-21 05:59] LABS: Basophils # (auto) 0 10 ^3/uL (0-0.2); Basophils % (auto) 0.7 % (0.0-2.0); Eosinophils # (auto) 0.3 10 ^3/uL (0-0.8); Eosinophils % (auto) 3.7 % (0.0-7.0); Hemoglobin 14.3 g/dL (12.2-16.2); Lymphocytes % (auto) 28.7 % (10.0-50.0); Mean Corpuscular Hemoglobin 33.8 pg (28.0-32.0); Mean Corpuscular Hgb Conc. 33.3 g/dL (32.0-36.0); Mean Corpuscular Volume 101.4 fL (80.0-100.0); Monocytes # (auto) 0.6 10 ^3/uL (0-1.3); Monocytes % (auto) 8.9 % (0.0-12.0); Nucleated Red Blood Cells % 0.1 %; Platelet Count (auto) 183 10^3/uL (140-450); Red Blood Cells 4.24 10^6/uL (4.0-5.20); Red Cell Distribution Width 13.1 % (11.8-14.3); White Blood Cell 6.9 10^3/uL (4.4-10.8)
[2020-01-21 06:15] LABS: Potassium 4.2 mmol/L (3.5-5.1)
[2020-01-21 06:27] LABS: Albumin 3.3 g/dL (3.4-5.0); BUN/Creatinine Ratio 20.4; Bilirubin, Total 0.8 mg/dL (0.2-1.0); Calcium 7.7 mg/dL (8.5-10.1); Total Protein 6.6 g/dL (6.4-8.2)
[2020-01-21] MEDS: LEVOTHYROXINE SODIUM 50 MCG TAB PO SCH (06:32)
[2020-01-21] MEDS: MULTIPLE VITAMIN TAB PO SCH (09:57)
[2020-01-21] MEDS: MONTELUKAST SODIUM 10 MG TAB PO SCH (09:58)
[2020-01-21] MEDS: ASCORBIC ACID 500 MG TAB PO SCH ×2 (09:58→22:03)
[2020-01-21] MEDS: ENOXAPARIN SOD 30 MG/0.3 ML SYRINGE SC SCH (09:59)
[2020-01-21] MEDS ORDERED: ALBUTEROL SULF 2.5 MG/0.5ML(0.5%) NEB SOLN HHN SCH (10:00)
[2020-01-21] MEDS ORDERED: FAMOTIDINE 20 MG TAB PO SCH (10:00)
[2020-01-21] MEDS ORDERED: PANTOPRAZOLE 40 MG/10 ML VIAL INJ IV SCH (10:00)
[2020-01-21] MEDS ORDERED: PANTOPRAZOLE 40 MG/10 ML VIAL INJ IV ONE (11:15)
[2020-01-21] MEDS ORDERED: LIDOCAINE VISCOUS 2% 15ML UD ONE (16:13)
[2020-01-21] MEDS ORDERED: SODIUM CHLORIDE LOCK 10 ML ONE (16:13)
[2020-01-21] MEDS ORDERED: diphenhdrAMINE HCL 50 MG/1 ML VL ONE (16:13)
[2020-01-21] MEDS: fentaNYL CITRATE 100 MCG/2 ML VL ONE ×2 (16:15→16:19)
[2020-01-21] MEDS: MIDAZOLAM HCL 5 MG/ML-1ML VIAL ONE ×2 (16:15→16:20)
[2020-01-21 17:15] LABS: INR 1.03 (0.9-1.15); Partial Thromboplastin Time 30.8 sec (23.0-31.2)
[2020-01-21] MEDS: SUCRALFATE 1 GM/10 ML ORAL SUSP PO SCH ×2 (17:36→22:03)
[2020-01-21] MEDS: PANTOPRAZOLE 40 MG/10 ML VIAL INJ IV SCH (22:03)
[2020-01-22] MEDS: MORPHINE SULFATE 4 MG/ML SYR/VIAL IV PRN ×5 (00:19→20:57)
[2020-01-22 05:00] VITALS: BP 148/74
[2020-01-22] MEDS: LEVOTHYROXINE SODIUM 50 MCG TAB PO SCH (07:00)
[2020-01-22] MEDS: SUCRALFATE 1 GM/10 ML ORAL SUSP PO SCH ×4 (07:00→20:48)
[2020-01-22] MEDS: SODIUM CHLORIDE 0.9% 1,000 ML IV SCH (07:35)
[2020-01-22 08:31] VITALS: BP 118/79
[2020-01-22] MEDS: NICOTINE 21MG/24 HR TOPICAL PATCH TD SCH (09:27)
[2020-01-22] MEDS: ENOXAPARIN SOD 30 MG/0.3 ML SYRINGE SC SCH (09:27)
[2020-01-22] MEDS: ASCORBIC ACID 500 MG TAB PO SCH ×2 (09:28→20:48)
[2020-01-22] MEDS: MONTELUKAST SODIUM 10 MG TAB PO SCH (09:28)
[2020-01-22] MEDS: MULTIPLE VITAMIN TAB PO SCH (09:28)
[2020-01-22] MEDS: PANTOPRAZOLE 40 MG/10 ML VIAL INJ IV SCH (09:37)
[2020-01-22 12:48] VITALS: BP 138/70
[2020-01-22 16:52] VITALS: BP 157/80
[2020-01-22] MEDS ORDERED: LOPERAMIDE 2 mg/15ml ORAL soln PO PRN (17:15)
[2020-01-22] MEDS: PANTOPRAZOLE 40 MG TAB PO SCH (20:48)
[2020-01-22 22:13] VITALS: BP 149/71
[2020-01-23] MEDS: SODIUM CHLORIDE 0.9% 1,000 ML IV SCH (00:15)
[2020-01-23] MEDS: MORPHINE SULFATE 4 MG/ML SYR/VIAL IV PRN ×2 (04:33→09:28)
[2020-01-23 05:17] VITALS: BP 112/71
[2020-01-23] MEDS: LEVOTHYROXINE SODIUM 50 MCG TAB PO SCH (06:29)
[2020-01-23] MEDS: SUCRALFATE 1 GM/10 ML ORAL SUSP PO SCH ×2 (06:29→11:30)
[2020-01-23 09:00] VITALS: BP 139/70
[2020-01-23] MEDS: PANTOPRAZOLE 40 MG TAB PO SCH (09:29)
[2020-01-23] MEDS: MONTELUKAST SODIUM 10 MG TAB PO SCH (09:29)
[2020-01-23] MEDS: ENOXAPARIN SOD 30 MG/0.3 ML SYRINGE SC SCH (09:29)
[2020-01-23] MEDS: MULTIPLE VITAMIN TAB PO SCH (09:30)
[2020-01-23] MEDS: ASCORBIC ACID 500 MG TAB PO SCH (09:30)
[2020-01-23] MEDS: NICOTINE 21MG/24 HR TOPICAL PATCH TD SCH (09:31)
[2020-01-23] MEDS ORDERED: PANT40T PO (09:51)
[2020-01-23] MEDS ORDERED: SUCR1TAB22 OR (09:51)
[2020-01-23 10:59] VITALS: BP 139/70
== END 2020-01-23 12:55 | disposition home or self-care (01) | DRG 391 ==
LOC: ER 15:07 → TELE 15:08 → TELE-WESTW 23:43
PROVIDERS: ADMIT Nurse Practitioner Family; ATTEND Family Medicine
PROC: 0DB88ZX Excision of Small Intestine, Via Natural or Artificial Opening Endoscopic, Diagnostic (ICD-10-PCS; 2020-01-21)
PROC: 0DB68ZX Excision of Stomach, Via Natural or Artificial Opening Endoscopic, Diagnostic (ICD-10-PCS; principal; 2020-01-21 16:12)
DX: K29.70 Gastritis, unspecified, without bleeding (principal); J96.21 Acute and chronic respiratory failure with hypoxia; E43 Unspecified severe protein-calorie malnutrition; Z68.1 Body mass index [BMI] 19.9 or less, adult; M48.54XA Collapsed vertebra, not elsewhere classified, thoracic region, initial encounter for fracture; M19.90 Unspecified osteoarthritis, unspecified site; F41.9 Anxiety disorder, unspecified; K58.0 Irritable bowel syndrome with diarrhea; R62.7 Adult failure to thrive; K44.9 Diaphragmatic hernia without obstruction or gangrene; E03.9 Hypothyroidism, unspecified; M54.9 Dorsalgia, unspecified; F17.210 Nicotine dependence, cigarettes, uncomplicated; F32.9 Major depressive disorder, single episode, unspecified; J43.9 Emphysema, unspecified; K29.80 Duodenitis without bleeding; K31.9 Disease of stomach and duodenum, unspecified; Z99.81 Dependence on supplemental oxygen; Z85.118 Personal history of other malignant neoplasm of bronchus and lung; Z82.49 Family history of ischemic heart disease and other diseases of the circulatory system; Z90.710 Acquired absence of both cervix and uterus; Z82.5 Family history of asthma and other chronic lower respiratory diseases; Z80.9 Family history of malignant neoplasm, unspecified; Z88.2 Allergy status to sulfonamides; Z88.0 Allergy status to penicillin; Z88.1 Allergy status to other antibiotic agents; Z88.8 Allergy status to other drugs, medicaments and biological substances; K58.9 Irritable bowel syndrome, unspecified
CPT/HCPCS: 36415; 71250; 74176; 76705; 80053; 81001; 83690; 84484; 85025; 85610; 85730; 87426; 93005; 96361; 96374; 96375; 97116; 97530; C9113; G0378; J2250; J2405

== ENCOUNTER 2020-07-11 18:44 | Inpatient (IN) | payer OTHER ==
[~2020-07-11] VITALS: Ht 165.1 cm; Wt 37.9 kg
[~2020-07-11 18:44] MED LIST changes: -MONT5CHW17; +MONT5CHW23; -OMEP20TA PO; +PANT40T PO; +SUCR1TAB22 OR
[2020-07-11] MEDS ORDERED: ONDANSETRON HCL 4 MG/2 ML VIAL IV ONE (19:00)
[2020-07-11] MEDS ORDERED: methylPREDNISolone SOD SUCC 125 MG/2 ML VL IV ONE (19:00)
[2020-07-11] MEDS ORDERED: SODIUM CHLORIDE 0.9% 500 ML IVB ONE (19:00)
[2020-07-11 20:04] LABS: Basophils # (auto) 0 10 ^3/uL (0-0.2); Basophils % (auto) 0.3 % (0.0-2.0); Eosinophils # (auto) 0 10 ^3/uL (0-0.8); Eosinophils % (auto) 0.3 % (0.0-7.0); Hematocrit 48.5 % (36.0-46.0); Hemoglobin 16.6 g/dL (12.2-16.2); Lymphocytes # (auto) 1.5 10 ^3/uL (0.4-5.4); Lymphocytes % (auto) 16.8 % (10.0-50.0); Mean Corpuscular Hemoglobin 34.3 pg (28.0-32.0); Mean Corpuscular Hgb Conc. 34.3 g/dL (32.0-36.0); Mean Corpuscular Volume 100.1 fL (80.0-100.0); Monocytes # (auto) 0.6 10 ^3/uL (0-1.3); Monocytes % (auto) 6.3 % (0.0-12.0); Neutrophils % (auto) 76.3 % (37.0-80.0); Nucleated Red Blood Cells % 0.1 %; Platelet Count (auto) 226 10^3/uL (140-450); Red Blood Cells 4.85 10^6/uL (4.0-5.20); Red Cell Distribution Width 13.3 % (11.8-14.3); White Blood Cell 9.2 10^3/uL (4.4-10.8)
[2020-07-11 20:19] LABS: Albumin 4.1 g/dL (3.4-5.0); Anion Gap 9 (5-15); Blood Urea Nitrogen 10 mg/dL (7-18); Calcium 8.5 mg/dL (8.5-10.1); Carbon Dioxide 25 mmol/L (21-32); Chloride 102 mmol/L (98-107); Glucose 111 mg/dL (74-106); Lipase 179 U/L (73-393); Magnesium 2.1 mg/dL (1.6-2.6); Potassium 4.5 mmol/L (3.5-5.1); Sodium 136 mmol/L (136-145)
[2020-07-11 20:21] LABS: Alanine Aminotransferase 14 U/L (13-56); Aspartate Aminotransferase 22 U/L (15-37); BUN/Creatinine Ratio 16.4; GFR African American 119 mL/min; GFR Non-African American 99 mL/min
[2020-07-11 20:24] LABS: Alkaline Phosphatase 47 U/L (45-117); Bilirubin, Total 0.8 mg/dL (0.2-1.0); Total Protein 8.3 g/dL (6.4-8.2)
[2020-07-11] MEDS ORDERED: MORPHINE SULFATE 4 MG/ML SYR/VIAL IV ONE (21:00)
[2020-07-11] MEDS ORDERED: ACETAMINOPHEN 325 MG TAB PO PRN (21:00)
[2020-07-11] MEDS ORDERED: NITROGLYCERIN 0.4 MG SL TAB SL PRN (21:00)
[2020-07-11] MEDS ORDERED: ALBUTEROL SULF 2.5 MG/0.5ML(0.5%) NEB SOLN NEB PRN (21:00)
[2020-07-11] MEDS ORDERED: MORPHINE SULF INJ 2 MG/ML SYRINGE 1ML IV PRN (21:00)
[2020-07-11] MEDS: PANTOPRAZOLE 40 MG TAB PO SCH (21:41)
[2020-07-11] MEDS: SUCRALFATE 1 GM TAB PO SCH (21:41)
[2020-07-11] MEDS: MONTELUKAST SODIUM 10 MG TAB PO SCH (21:42)
[2020-07-11 23:32] VITALS: BP 128/81
[2020-07-12] VITALS (7 sets, daily range): BP systolic 114–143; BP diastolic 66–86
[2020-07-12] MEDS: ONDANSETRON HCL 4 MG/2 ML VIAL IV PRN ×3 (00:42→16:44)
[2020-07-12] MEDS: TEMAZEPAM 15 MG CAP PO PRN ×2 (01:29→21:55)
[2020-07-12] MEDS: LEVOTHYROXINE SODIUM 25 MCG TAB PO SCH (07:00)
[2020-07-12] MEDS: SUCRALFATE 1 GM TAB PO SCH ×4 (07:00→21:18)
[2020-07-12 07:04] LABS: Basophils # (auto) 0 10 ^3/uL (0-0.2); Basophils % (auto) 0.2 % (0.0-2.0); Eosinophils # (auto) 0 10 ^3/uL (0-0.8); Hematocrit 42.3 % (36.0-46.0); Hemoglobin 14.3 g/dL (12.2-16.2); Lymphocytes # (auto) 1.1 10 ^3/uL (0.4-5.4); Lymphocytes % (auto) 18.4 % (10.0-50.0); Mean Corpuscular Hemoglobin 33.9 pg (28.0-32.0); Mean Corpuscular Hgb Conc. 33.7 g/dL (32.0-36.0); Mean Corpuscular Volume 100.6 fL (80.0-100.0); Monocytes # (auto) 0 10 ^3/uL (0-1.3); Monocytes % (auto) 0.6 % (0.0-12.0); Neutrophils # (auto) 4.7 10 ^3/uL (1.6-8.6); Neutrophils % (auto) 80.8 % (37.0-80.0); Platelet Count (auto) 178 10^3/uL (140-450); Red Blood Cells 4.21 10^6/uL (4.0-5.20); Red Cell Distribution Width 12.9 % (11.8-14.3); White Blood Cell 5.8 10^3/uL (4.4-10.8)
[2020-07-12] MEDS: IPRATROPIUM BROM 0.5 MG/2.5ML INH SOL NEB SCH ×3 (07:04→13:16)
[2020-07-12 07:30] LABS: Potassium 4.1 mmol/L (3.5-5.1)
[2020-07-12 07:38] LABS: BUN/Creatinine Ratio 26.4; Calcium 7.5 mg/dL (8.5-10.1)
[2020-07-12] MEDS ORDERED: ALBUTEROL SULF 2.5 MG/0.5ML(0.5%) NEB SOLN NEB PRN (07:45)
[2020-07-12] MEDS ORDERED: IPRATROPIUM BROM 0.5 MG/2.5ML INH SOL NEB PRN (07:45)
[2020-07-12] MEDS: PANTOPRAZOLE 40 MG TAB PO SCH ×2 (10:25→21:16)
[2020-07-12] MEDS: TRIAMTERENE/HCTZ 75/50MG TABLET PO SCH (10:25)
[2020-07-12] MEDS: ENOXAPARIN SOD 40 MG/0.4 ML SYRINGE SC SCH (10:26)
[2020-07-12] MEDS: METOPROLOL SUCCINATE XL 50 MG TAB PO SCH (10:26)
[2020-07-12 12:23] LABS: Urine Bacteria NONE SEEN /hpf (None Seen); Urine Blood Negative /uL (Negative); Urine Mucus FEW (None Seen); Urine Specific Gravity 1.011 (1.001-1.035); Urine WBC <1 /hpf (0 - 5)
[2020-07-12] MEDS: HYDROcodone-ACET 10/325MG TAB PO PRN ×2 (13:15→21:17)
[2020-07-12] MEDS ORDERED: IOHEXOL 350 MG/ML 100ML IJ ONE ×2 (13:28→13:59)
[2020-07-12] MEDS: MONTELUKAST SODIUM 10 MG TAB PO SCH (21:18)
[2020-07-12] MEDS ORDERED: SODIUM CHLORIDE 0.9% 1,000 ML IV ONE (21:30)
[2020-07-13] MEDS: IPRATROPIUM BROM 0.5 MG/2.5ML INH SOL NEB SCH ×3 (00:24→11:37)
[2020-07-13 05:00] VITALS: BP 109/61
[2020-07-13] MEDS: SUCRALFATE 1 GM TAB PO SCH ×2 (06:31→11:46)
[2020-07-13] MEDS: LEVOTHYROXINE SODIUM 25 MCG TAB PO SCH (06:31)
[2020-07-13] MEDS: HYDROcodone-ACET 10/325MG TAB PO PRN ×2 (06:31→11:47)
[2020-07-13 09:00] VITALS: BP 133/67
[2020-07-13] MEDS: TRIAMTERENE/HCTZ 75/50MG TABLET PO SCH (09:32)
[2020-07-13] MEDS: PANTOPRAZOLE 40 MG TAB PO SCH (09:32)
[2020-07-13] MEDS: METOPROLOL SUCCINATE XL 50 MG TAB PO SCH (09:33)
[2020-07-13] MEDS: ENOXAPARIN SOD 40 MG/0.4 ML SYRINGE SC SCH (09:33)
[2020-07-13 11:21] LABS: Albumin 3.2 g/dL (3.4-5.0); Calcium 8.1 mg/dL (8.5-10.1); Potassium 3.4 mmol/L (3.5-5.1)
[2020-07-13 11:24] LABS: BUN/Creatinine Ratio 17.7; Bilirubin, Total 0.7 mg/dL (0.2-1.0); Total Protein 6.3 g/dL (6.4-8.2)
[2020-07-13 12:51] VITALS: BP 110/57
[2020-07-13 16:54] VITALS: BP 132/71
[2020-07-13] MEDS ORDERED: APIXABAN 5 MG TAB PO SCH (22:00)
[2020-07-20] MEDS ORDERED: APIXABAN 5 MG TAB PO SCH (22:00)
== END 2020-07-13 16:50 | disposition home or self-care (01) | DRG 189 ==
LOC: ER 18:45 → TELE 20:47 → TELE-WESTW 23:29
PROVIDERS: ADMIT Nurse Practitioner; ATTEND Internal Medicine Nephrology
DX: J96.21 Acute and chronic respiratory failure with hypoxia (principal); I27.82 Chronic pulmonary embolism; R65.10 Systemic inflammatory response syndrome (SIRS) of non-infectious origin without acute organ dysfunction; F11.20 Opioid dependence, uncomplicated; R62.7 Adult failure to thrive; I10 Essential (primary) hypertension; Z20.822 Contact with and (suspected) exposure to COVID-19; F17.210 Nicotine dependence, cigarettes, uncomplicated; E89.0 Postprocedural hypothyroidism; K27.9 Peptic ulcer, site unspecified, unspecified as acute or chronic, without hemorrhage or perforation; K58.9 Irritable bowel syndrome, unspecified; K29.70 Gastritis, unspecified, without bleeding; I48.91 Unspecified atrial fibrillation; J43.9 Emphysema, unspecified; Z80.9 Family history of malignant neoplasm, unspecified; Z79.01 Long term (current) use of anticoagulants; Z86.73 Personal history of transient ischemic attack (TIA), and cerebral infarction without residual deficits; Z90.710 Acquired absence of both cervix and uterus; Z90.2 Acquired absence of lung [part of]; Z82.49 Family history of ischemic heart disease and other diseases of the circulatory system; Z99.81 Dependence on supplemental oxygen; Z88.2 Allergy status to sulfonamides; Z88.8 Allergy status to other drugs, medicaments and biological substances
CPT/HCPCS: 36415; 36600; 71045; 71275; 74176; 80048; 80053; 81001; 82805; 83690; 83735; 84484; 85025; 85379; 87426; 93005; 93970; 94640; 96361; 96374; 96375; G0378; J2405

== ENCOUNTER 2021-02-14 19:20 | Inpatient (IN) | payer OTHER ==
[~2021-02-14] VITALS: Ht 152.4 cm; Wt 31.1 kg
[~2021-02-14 19:20] MED LIST changes: -ALBUAER3 IN; -ALPR0.5T; -DIPH2.5T73 PO; -FLUT0.0531; -FLUT250M2; -LEVO25TA45; -METO25TA93 PO; +MONT-8 PO; -MONT10TA34 PO; -MONT5CHW23; -SUCR1TAB22 OR; -TRIA50TA2
[2021-02-14 20:36] LABS: Basophils # (auto) 0 10 ^3/uL (0-0.2); Basophils % (auto) 0.4 % (0.0-2.0); Eosinophils # (auto) 0 10 ^3/uL (0-0.8); Eosinophils % (auto) 0.4 % (0.0-7.0); Hematocrit 40.8 % (36.0-46.0); Hemoglobin 13.6 g/dL (12.2-16.2); Lymphocytes # (auto) 0.8 10 ^3/uL (0.4-5.4); Lymphocytes % (auto) 10.2 % (10.0-50.0); Mean Corpuscular Hgb Conc. 33.3 g/dL (32.0-36.0); Mean Corpuscular Volume 99.2 fL (80.0-100.0); Monocytes # (auto) 0.4 10 ^3/uL (0-1.3); Monocytes % (auto) 5.2 % (0.0-12.0); Neutrophils # (auto) 6.7 10 ^3/uL (1.6-8.6); Neutrophils % (auto) 83.8 % (37.0-80.0); Nucleated Red Blood Cells % 0.1 %; Red Blood Cells 4.11 10^6/uL (4.0-5.20); Red Cell Distribution Width 13.4 % (11.8-14.3)
[2021-02-14 20:48] LABS: Albumin 3.2 g/dL (3.4-5.0); Calcium 8.2 mg/dL (8.5-10.1); Potassium 3.8 mmol/L (3.5-5.1)
[2021-02-14 20:52] LABS: INR 1.05 (0.9-1.15); Partial Thromboplastin Time 28.2 sec (23.6-33.0)
[2021-02-14 20:55] LABS: Bilirubin, Total 0.5 mg/dL (0.2-1.0); Total Protein 7.3 g/dL (6.4-8.2)
[2021-02-15] MEDS ORDERED: SODIUM CHLORIDE 0.9% 500 ML IV ONE (02:00)
[2021-02-15] MEDS ORDERED: MECLIZINE HCL 25 MG TAB PO ONE (02:00)
[2021-02-15] MEDS ORDERED: METOCLOPRAMIDE HCL 5MG/ml INJ 2ml VIAL IV ONE (02:00)
[2021-02-15] MEDS ORDERED: ASPirin 325 MG TAB PO ONE (03:45)
[2021-02-15] MEDS ORDERED: ONDANSETRON HCL 4 MG/2 ML VIAL IV PRN (06:15)
[2021-02-15] MEDS ORDERED: ALBUTEROL SULF 2.5 MG/0.5ML(0.5%) NEB SOLN NEB PRN (06:15)
[2021-02-15] MEDS ORDERED: ACETAMINOPHEN 325 MG TAB PO PRN (06:15)
[2021-02-15] MEDS ORDERED: MORPHINE SULFATE INJECTION 2 MG/ML SYRG IV PRN (06:15)
[2021-02-15] MEDS ORDERED: NITROGLYCERIN 0.4 MG SL TAB SL PRN (06:15)
[2021-02-15] MEDS: LEVOTHYROXINE SODIUM 50 MCG TAB PO SCH (06:42)
[2021-02-15] MEDS ORDERED: ENOXAPARIN SOD 40 MG/0.4 ML SYRINGE SC SCH (10:00)
[2021-02-15] MEDS ORDERED: ASPirin 81 mg TAB PO SCH (10:00)
[2021-02-15] MEDS: PANTOPRAZOLE 40 MG TAB PO SCH (10:28)
[2021-02-15] MEDS: METOPROLOL SUCCINATE XL 50 MG TAB PO SCH (10:29)
[2021-02-15] MEDS ORDERED: ONDA-144 PO (10:42)
[2021-02-15] MEDS ORDERED: SUCR1TAB PO (10:43)
[2021-02-15 11:23] LABS: Urine Bacteria NONE SEEN /hpf (None Seen); Urine Blood Negative /uL (Negative); Urine WBC <1 /hpf (0 - 5)
[2021-02-15] MEDS ORDERED: IOHEXOL 350 MG/ML 100ML IJ ONE (12:30)
[2021-02-15] MEDS: MECLIZINE HCL 25 MG TAB PO PRN (13:06)
[2021-02-15] MEDS: HYDROcodone-ACET 10/325MG TAB PO PRN ×2 (13:16→21:13)
[2021-02-15 14:40] VITALS: BP 148/78
[2021-02-15 16:01] LABS: Albumin 3.4 g/dL (3.4-5.0); Calcium 8.6 mg/dL (8.5-10.1); Magnesium 1.8 mg/dL (1.6-2.6); Potassium 3.3 mmol/L (3.5-5.1)
[2021-02-15 16:05] LABS: BUN/Creatinine Ratio 21.4; Bilirubin, Total 0.9 mg/dL (0.2-1.0); Phosphorus 3.6 mg/dL (2.5-4.90); Total Protein 8.1 g/dL (6.4-8.2)
[2021-02-15] MEDS ORDERED: ATORVASTATIN 20 MG TAB PO SCH (22:00)
[2021-02-15] MEDS: ATORVASTATIN 20 MG TAB PO SCH (22:02)
[2021-02-15] MEDS: APIXABAN 5 MG TAB PO SCH (22:10)
[2021-02-16] MEDS: HYDROcodone-ACET 10/325MG TAB PO PRN ×2 (03:28→12:15)
[2021-02-16 06:12] LABS: Basophils # (auto) 0 10 ^3/uL (0-0.2); Basophils % (auto) 0.4 % (0.0-2.0); Eosinophils # (auto) 0 10 ^3/uL (0-0.8); Eosinophils % (auto) 0.1 % (0.0-7.0); Hematocrit 40.8 % (36.0-46.0); Lymphocytes # (auto) 1.3 10 ^3/uL (0.4-5.4); Lymphocytes % (auto) 10.6 % (10.0-50.0); Mean Corpuscular Hemoglobin 33.8 pg (28.0-32.0); Mean Corpuscular Hgb Conc. 34.4 g/dL (32.0-36.0); Mean Corpuscular Volume 98.3 fL (80.0-100.0); Monocytes # (auto) 0.9 10 ^3/uL (0-1.3); Monocytes % (auto) 7.4 % (0.0-12.0); Neutrophils # (auto) 10.1 10 ^3/uL (1.6-8.6); Neutrophils % (auto) 81.5 % (37.0-80.0); Nucleated Red Blood Cells % 0.1 %; Red Blood Cells 4.15 10^6/uL (4.0-5.20); Red Cell Distribution Width 13.4 % (11.8-14.3); White Blood Cell 12.4 10^3/uL (4.4-10.8)
[2021-02-16] MEDS: LEVOTHYROXINE SODIUM 50 MCG TAB PO SCH (06:32)
[2021-02-16 06:33] LABS: Calcium 8.9 mg/dL (8.5-10.1); Magnesium 2.6 mg/dL (1.6-2.6); Potassium 3.3 mmol/L (3.5-5.1)
[2021-02-16 06:35] LABS: BUN/Creatinine Ratio 35.2
[2021-02-16] MEDS ORDERED: POTASSIUM CHL 20 Meq TABLET PO ONE (08:45)
[2021-02-16] MEDS: PANTOPRAZOLE 40 MG TAB PO SCH (09:23)
[2021-02-16] MEDS: APIXABAN 5 MG TAB PO SCH ×2 (09:23→21:44)
[2021-02-16] MEDS: ASPirin 81 mg TAB PO SCH (09:23)
[2021-02-16] MEDS: METOPROLOL SUCCINATE XL 50 MG TAB PO SCH (09:23)
[2021-02-16] MEDS: MECLIZINE HCL 25 MG TAB PO PRN ×2 (09:24→18:30)
[2021-02-16 11:15] VITALS: BP 129/84
[2021-02-16 11:30] VITALS: BP 116/74
[2021-02-16] MEDS ORDERED: INFLUENZA QUAD 2021-2022 0.5 ML SYRG IM ONE (12:45)
[2021-02-16 16:33] VITALS: BP 124/62
[2021-02-16] MEDS ORDERED: SODIUM CHLORIDE 0.9% 250 ML IV ONE (18:15)
[2021-02-16 20:00] VITALS: BP 140/72
[2021-02-16] MEDS: ATORVASTATIN 20 MG TAB PO SCH (21:44)
[2021-02-16 22:00] VITALS: BP 147/71
[2021-02-17 05:30] VITALS: BP 132/71
[2021-02-17] MEDS: LEVOTHYROXINE SODIUM 50 MCG TAB PO SCH (07:08)
[2021-02-17 09:00] VITALS: BP 144/77
[2021-02-17] MEDS: ASPirin 81 mg TAB PO SCH (09:12)
[2021-02-17] MEDS: PANTOPRAZOLE 40 MG TAB PO SCH (09:12)
[2021-02-17] MEDS: APIXABAN 5 MG TAB PO SCH (09:12)
[2021-02-17] MEDS: METOPROLOL SUCCINATE XL 50 MG TAB PO SCH (09:13)
[2021-02-17] MEDS: HYDROcodone-ACET 10/325MG TAB PO PRN ×2 (09:17→18:11)
[2021-02-17 12:41] VITALS: BP 126/54
[2021-02-17 17:00] VITALS: BP 131/60
== END 2021-02-17 18:30 | disposition hospice, home (50) | DRG 149 ==
LOC: EDBD 19:20 → ER 19:22 → TELE 02-15 06:02 → TELE-WESTW 02-16 10:41
PROVIDERS: ADMIT Nurse Practitioner; ATTEND Internal Medicine
DX: H81.10 Benign paroxysmal vertigo, unspecified ear (principal); J96.20 Acute and chronic respiratory failure, unspecified whether with hypoxia or hypercapnia; I21.A1 Myocardial infarction type 2; I48.20 Chronic atrial fibrillation, unspecified; C34.90 Malignant neoplasm of unspecified part of unspecified bronchus or lung; F11.20 Opioid dependence, uncomplicated; J98.11 Atelectasis; M80.00XA Age-related osteoporosis with current pathological fracture, unspecified site, initial encounter for fracture; I27.82 Chronic pulmonary embolism; Z66 Do not resuscitate; E89.0 Postprocedural hypothyroidism; F17.210 Nicotine dependence, cigarettes, uncomplicated; J43.9 Emphysema, unspecified; F41.9 Anxiety disorder, unspecified; M19.90 Unspecified osteoarthritis, unspecified site; Z20.822 Contact with and (suspected) exposure to COVID-19; Z80.9 Family history of malignant neoplasm, unspecified; Z82.49 Family history of ischemic heart disease and other diseases of the circulatory system; Z86.73 Personal history of transient ischemic attack (TIA), and cerebral infarction without residual deficits; Z90.710 Acquired absence of both cervix and uterus; Z88.1 Allergy status to other antibiotic agents; Z88.2 Allergy status to sulfonamides
CPT/HCPCS: 36415; 70450; 71045; 71275; 80048; 80053; 81001; 82306; 83036; 83735; 83880; 84100; 84443; 84484; 85025; 85610; 85730; 87426; 93005; 93306; 96361; 96374; 97163; G0378; J2405